=== PATIENT | female | born 1945 | race Caucasian/White ===

== ENCOUNTER 2021-05-10 18:00 | Emergency (ER) | payer OTHER ==
[~2021-05-10] VITALS: Ht 162.6 cm; Wt 68.0 kg
[2021-05-10 19:42] VITALS: BP 139/94
== END 2021-05-10 19:42 ==
LOC: ER 18:00
DX: R45.850 Homicidal ideations (principal); Z20.822 Contact with and (suspected) exposure to COVID-19; F32.9 Major depressive disorder, single episode, unspecified

== ENCOUNTER 2021-05-10 20:54 | Inpatient (IN) | payer OTHER ==
[2021-05-10 21:46] VITALS: BP 158/108
--- NOTE | 2021-05-11 05:26 | NUR ---
Patient arrived on the [facility] floor on 05/10/21 @ 19:54, accompanied by [id number] from [facility] [facility], and transferred to bed 528B. A&Ox4, Full code. Noted to be hyperverbal and spastic, admitted to [facility] for change in mental status, substance abuse and anxiety. Patient is hypertensive, Dr. Jaramillo gave orders to wait for alcohol to clear the system before he will prescribe B/P meds. Activity as tolerated. VS 158/108 98.2 85 18 99% on RA. problems are Altered mental status, Dementia ETOH abuse, with an admitting DX of unspecified Psychosis. Geodon and Ativan were administered in the ED. Ambulatory with a steady gait. Slept well throughout the NOC. Will continue to monitor for safety and comfort as per unit protocol.
[2021-05-11 06:06] LABS: CREATININE 0.8 mg/dL (0.6-1.0); POTASSIUM 4.1 mmol/L (3.5-5.1)
[2021-05-11 06:07] LABS: CHOLESTEROL 271 mg/dL (<200); HDL CHOLESTEROL 87 mg/dL (>40); LDL CHOLESTEROL 162 mg/dL (<100); TC:HDL 3.1 Ratio (Not establshd); TRIGLYCERIDE 113 mg/dL (<150); VLDL 23 mg/dL (<40)
[2021-05-11 06:16] LABS: SERUM ASSESSMENT Clear
[2021-05-11 10:32] VITALS: BP 161/96
--- NOTE | 2021-05-11 13:36 | NUR ---
ERIS emailed Jacquelin Laws with [employer] to request a medicaid screening on this Pt. ERIS provided Jacquelin a copy of the DPOA document. ERIS team will continue to follow up
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
[2021-05-11 16:30] VITALS: BP 146/91
--- NOTE | 2021-05-11 18:27 | NUR ---
Alert to name only. Calm, cooperative and compliant in AM, attempting to help peers but became angry and aggressive after meeting with Dr. Jaramillo and SW. Hopeless. Calmed down in room but again became angry. Ativan given PO with good results. Needy with multiple requests late afternoon. Spoke with DPMARTHA. Currently in day room on couch watching TV with peers. Breath sounds clear. Reg HR auscultated. Color pink with brisk capillary refill and palpable peripheral pulses. No edema. Independent with voiding. Active bowel sounds over soft, rounded abdomen. Ambulates with regular, steady gait. No s/o of distress.
[2021-05-11 20:38] VITALS: BP 138/86
--- NOTE | 2021-05-12 01:09 | NUR ---
05/11/21- Pt is confused, wanders, very steady on her feet, impulsive at times, caught her eating off of a tray. Took medications without difficulty, talks about going home. Will continue to monitor through out shift.
[2021-05-12 02:24] VITALS: BP 138/86
[2021-05-12 03:06] LABS: GLYCOHEMOGLOBIN (HGB A1C) 4.8 % (4.8-5.6)
[2021-05-12 10:13] VITALS: BP 138/89
--- NOTE | 2021-05-12 16:45 | NUR ---
Alert and orientated X 3 but very forgetful. Denies SI/HI but admits to anger against exhusband. Ambulating with regular, steady gait. Interacting with staff and peers. Breath sounds clear. Reg HR auscultated. Color pink with brisk capillary refill and palpable peripheral pulses. No edema. Independent with voiding. States she had BM this AM. Active bowel sounds over soft, flat abdomen. Currently watching TV with peers without s/o distress.
--- NOTE | 2021-05-12 17:38 | NUR ---
Pt. expressed to SW that she did not want her daughter in law, Mrs. Salvador, to be involved in her discharge. Pt. expressed wanting to go with her son and daughter, Nkechi, upon discharge as they have a large home and a fenced in backyard for her dogs. ERIS talked with pt. about her son and his being able to meet her on-going needs.
[2021-05-12 19:37] VITALS: BP 150/94
--- NOTE | 2021-05-13 03:46 | NUR ---
05/12/21- Pt is alert/oriented x 3 with occasional forgetfulnes. ambulates independently w/o difficulty, did complain about low back pain this evening, states it is about a 3/10 but it is affecting my ability to sleep. Tylenol given shortly after her evening medications. Discussed we can crack her door but not lock it because we have to do frequent checks she was fine with that. Denies SI/HI/AH/VH, does voice sadness offer support as needed we did conversate a little this evening. She talked about working for [employer] and office. Very pleasant this evening. Needs a UA, will place a hat in toilet in am to get UA since pt is continent.
[2021-05-13 05:53] LABS: ABSOLUTE NEUTROPHILS 2.2 thou/uL (1.4-8.2); BASOPHILS 0.8 % (0.0-2.0); EOSINOPHILS 2.1 % (0.0-3.0); HEMOGLOBIN 13.3 gm/dL (12.0-15.0); LYMPHOCYTES 30.8 % (24.0-44.0); MCH 31.9 pg (26.0-34.0); MCHC 33.3 g/dL (28.0-37.0); MCV 95.9 fL (80.0-100.0); PLATELET COUNT 184 thou/uL (150-400); POLYS 55.3 % (36.0-66.0); RBC 4.17 mil/uL (4.20-5.00); RDW 13.5 % (10.5-14.5)
[2021-05-13 06:16] LABS: ALBUMIN 3.3 g/dL (3.4-5.0); CALCIUM 8.9 mg/dL (8.5-10.1); CREATININE 0.8 mg/dL (0.6-1.0); MAGNESIUM 2.3 mg/dL (1.8-2.4); PHOSPHORUS 4.9 mg/dL (2.6-4.7); POTASSIUM 4.2 mmol/L (3.5-5.1); TOTAL BILIRUBIN 0.5 mg/dL (0.2-1.0); TOTAL PROTEIN 6.3 g/dL (6.4-8.2)
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
[2021-05-13 07:55] VITALS: BP 143/96
[2021-05-13 08:59] LABS: URINE BILIRUBIN NEGATIVE (Negative); URINE BLOOD TRACE (Negative); URINE CLARITY CLEAR; URINE COLOR YELLOW; URINE GLUCOSE-RANDOM* NEGATIVE (Negative); URINE KETONES NEGATIVE (Negative); URINE LEUKOCYTES-REFLEX NEGATIVE (Negative); URINE NITRITE-REFLEX NEGATIVE (Negative); URINE PROTEIN (DIPSTICK) NEGATIVE (Negative); URINE SPECIFIC GRAVITY <= 1.005 (1.005-1.035); URINE UROBILINOGEN 0.2 E.U./dl (0.2-1.0)
--- NOTE | 2021-05-13 14:04 | NUR ---
PATIENT CARE ASSUMED AT 0700, PATIENT IS SITTING IN THE DAY ROOM, ALERT AND ORIENTED X3, SHE IS CALM AND COOPERATIVE WITH CARE, SHE ATE AND ATTEND GROUPS, ASSESSMENT COMPLETED, BREATH SOUND CLEAR, ACTIVE BOWEL SOUND OVER SOFT ROUNDED ABDOMEN, REGULAR HR, RR EVEN NONLABOURED, COLOR PINK WITH BRISK CAPILLARY REFILL, PATIENT AMBULATE WITH STEADY GAIT, SHE IS INDEPENDENT WITH VOIDING, SHE TOOK HER MEDICATION WHOLE, DENIES SI/HI. WILL CONTINUE TO MONITOR PATIENT FOR BEHAVIOR AND SAFETY
--- NOTE | 2021-05-13 15:52 | NUR ---
Check-in with pt. Pt. asked how much it cost to ride the bus as when she leave she doesn't have any money. The SW explained that the hospital will help with transportation. The pt. was also concerned about not having a place to go. The SW ensured that the SWs will help in finding placement prior to discharge. The pt. again expressed living with her son, Ronald, and his but not having the number to call.
[2021-05-13 19:31] VITALS: BP 155/109
[2021-05-13 20:15] VITALS: BP 145/78
--- NOTE | 2021-05-14 05:28 | NUR ---
PATIENT CARE WAS RESUMED AT 1900. SHE IS ALERT AND ORIENTED, MAX ASSIST WITH CARE. LUNGS ARE CLEAER, BS ACTIVE X 4 QAUD. SHE AMBULATED WITH A SBA. BS ACTIVE X4 . SHE DENIES PA1NS/SI/AVH/HI. Q12 MINURES CHECK IS ON GOING. BED IS LOW, LOCKED AND ALARMED.SHE TOO HER MED WHOLE.
[2021-05-14 09:44] VITALS: BP 114/82
--- NOTE | 2021-05-14 10:28 | NUR ---
RESUMMED CARE OF PATIENT AT 0700, PATIENT SITTING AT THE DAY ROOM, ALERT AND ORIENTED X3, SHE CAN BE FORGETFULL AT TIMES, SHE IS CALM AND COOPERATIVE WITH CARE, ACTIVE BOWEL SOUND OVER SOFT ROUNDED ABDOMEN, NO EDEMA NOTED, SKIN INTACT, SHE PATICIPATED IN GROUP, PATIENT AMBULATE WITH STEADY GAIT, NO DEVICES NEEDED, INDEPENDENT WITH VOIDING. PATIENT DENIES SI/HI, WILL CONTINUE TO MONITOR FOR SAFETY AND BEHAVIOR
[2021-05-14 19:50] VITALS: BP 131/85
--- NOTE | 2021-05-15 02:46 | NUR ---
PATIENT CARE WAS RESUMED AT 1900. SHE IS ALERT AND ORIENTED. SHE AMBULATES , TOOK HER MED,AND SHE DENIES PAINS/SI/ AVH/HI. LUNGS ARE CLEAR BS ACTIVE X4 QUADS. SHE IS CONTINENT OF BOWEL AND BLADDER. BED IS LOW AND LOCKED. SHE IS WANTING TO KEEP HER DOORS LOCKED BUT NURSE ADVISED THAT DOO SHOULD BE OPENED FOR EASY ASSESSMENT OF SAFETY. CONTINUE CARE
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
[2021-05-15 09:23] VITALS: BP 116/59
--- NOTE | 2021-05-15 11:29 | NUR ---
05-15-2021--9:00 AM--Spoke to RUBIA who states she wants resident placed when possible in [facility] area. She states [facility] is one [facility] the facilities they are interested in if they will take her. Provided her with code to call [email or web address]. She would like a copy of memory care facilities in [facility] emailed to her. Will give list to Zara SCHULTE. Ana also provided her number at work ([phone]) so the MD can call her. Provided it to Dr. Rosa.
--- NOTE | 2021-05-15 12:28 | NUR ---
New admit to [facility]. Pt noted with unspecified psychosis, treatment previously at [facility] x 3-4 days for AMS, then transferred here for admit to [facility]. Pt noted with significant recent emotional trauma and hx/current? ETOH abuse. She is on MVI and thiamine. Labs reviewed: Phos 4.9, Alk Phos 42, Chol 271, LDL 162. Intakes 100% on regular diet since admit, BMI 23 WNL. Second covid test results pending. With good deitary intakes and no c/o recent weight loss or change in appetite. Low nutrition risk at this time.
--- NOTE | 2021-05-15 13:10 | NUR ---
RESUMED CARE OF PATIENT AT 0700, PATIENT IN BED LAYING DOWN, CAME OUT FOR BREAKFAST, SHE IS ALERT AND ORIENTED X 3, CALM AND PLEASANT WITH CARE, ACTIVE BOWEL SOUND OVER SOFT AND ROUNDED ABDOMEN, BREATH SOUND CLEAR, REGULAR HR, SKIN IS INTACT, PATIENT AMBULATE ON A STEADY GAIT, SHE TOOK HER MEDICATION WHOLE, NO BEHAVIOR CHANGE, PATIENT DENIES SI/HI, WILL CONTINUE TO MONITOR FOR SAFETY
[2021-05-15 17:25] VITALS: BP 131/86
[2021-05-15 20:06] LABS: SYPHILIS AB Non Reactive (Non Reactive)
[2021-05-15 20:14] VITALS: BP 124/69
--- NOTE | 2021-05-16 05:41 | NUR ---
05-15-21 CARE TRANSFERRED 1899. LATER PT AAOX4, VSS, RR EVEN AND NONLABORED ON RA. PT DENIES SI/HI AND PAIN. PT LUNGS CLEAR, HT RR, ABD SOFT/FLAT/ACTIVE. PT REPORTED HAVING A BM THIS AM. PT PRESENTS PLESANT, CALM AND COOPERATIVE. DURING MEDICATION ADMIN PT HAD NO DIFFICULTIES. PT WILL CONTINUE TO BE MONITOR PER [facility].
[2021-05-16 10:18] VITALS: BP 114/74
[2021-05-16 13:31] VITALS: BP 114/74
--- NOTE | 2021-05-16 14:24 | NUR ---
RESUMMED CARE FROM OVERNIGHT SHIFT THIS AM, PATIENT ALERT ORIENTED TIMES 4 IN HER ROOM. PATIENT DENIES SI/HI/AH/VH AT PRESENT PATIENTS ABDOMEN SOFT BOWEL SOUNDS PRESENT. PATIENTS LUNGS CLEAR PATIENT DOES NOT HAVE ANY COVID SYMPTOMS. PATIENT CALM COOPERATIVE WILL CONTINUE TO MONITOR PATIENT FOR SAFETY AND BEHAVIORS.
--- NOTE | 2021-05-16 15:16 | NUR ---
05-16-2021--3:15 PM--Call to Ana Salvador (DPOA and daughter in law) of patient. inquired if she had an opportunity today or yesterday to look at the lists of NH/AL homes around the [facility] or on Medicare.com (which is a resource that was given to her yesterday by ERIS Zuñiga). She stated she had not. (The one resource she had named a couple of days ago was [facility].) Patient is Covid positive and will need to have a facility with a covid unit or be accepting Covid positive patients. I also explained to Ana that with Medicaid pending it will be very difficult to place the patient. Ana states the medicaid paperwork has been submitted but she thought there would be more paperwork that will be required. I advised her that I am going to submit information to a facility [facility] ([phone]) ( ). She was agreeable to this. I asked that she and her (patient's son) look at facilities and give me several options and that I will start calling facilities in their area to look for placement. She was agreeable.
--- NOTE | 2021-05-16 15:49 | NUR ---
05-16-2021--3:55 PM--Faxed referral paperwork to [facility] ([phone]) and to liasion at same facility ([facility]--fax [phone]; phone number for the liason is [phone]).
[2021-05-16 18:56] VITALS: BP 114/79
--- NOTE | 2021-05-17 05:08 | NUR ---
05-16-21 CARE TRANSFERRED 1899. LATER PT AAOX4, VSS, RR EVEN AND NONLABORED ON RA. PT DENIES SI/HI. PT REPORTS PAIN IN LOWER BACK AND SCALES 6 ON 0-10 SCALE. PT PRESENTS PLESANT, CALM AND COOPERATIVE. PT LUNGS CLEAR, HT RR, ABD SOFT/ACTIVE, SKIN W/D. PT PAIN HAS BEEN MANAGED WITH PRN MEDICATION AND PT HAD NO DIFFICULTIE TAKING MEDICATION WHOLE WITH WATER. LATER DURING REASSESSMENT OF PAIN NOTED PT RESTING WITH EYES CLOSED. PT WILL CONTINUE TO BE MONITOR PER [facility] PROTOCOL.
[2021-05-17 08:50] VITALS: BP 151/86
--- NOTE | 2021-05-17 09:31 | NUR ---
05-17-2021--8:00 AM--Call to see facilities in area. All were private pay and wouldn't take medicaid. Faxed referrals to three faciliies: [facility] ( --phone Csqnn-[phone]) neds to be 10 days out from covid + finding. I faxed informaion to [facility]-- . I faxed info to [facility] on 05-16-21. Call today to amparo Riana at [employer] ([phone]). Not in. Msg left to return my call.
--- NOTE | 2021-05-17 09:40 | NUR ---
05-17-2021--9:40 AM--call to DPOA to advise of referrals sent and deter,mikaela if there were any she and her ad found. ([phone] home) Also attempted call to her work ([phone]). Talked to Ana who gave me the name of one facility [facility]. I will attempt to call this facility to get fax. Spoke admissions--Not taking covid positive patients.
--- NOTE | 2021-05-17 10:16 | NUR ---
05-17-2021--Call to Riana christensen ([phone]). She will call Jerry of [employer] and call me back.
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
[2021-05-17 19:46] VITALS: BP 128/80
--- NOTE | 2021-05-18 07:07 | NUR ---
05-18-2021--7:10AM--Call will be made to MEME christensen to determine if she canget patient [facility] a least until she is 10 days past positive date and then new facility will be found.
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
[2021-05-18 08:14] VITALS: BP 124/80
--- NOTE | 2021-05-18 08:15 | NUR ---
05-18-2021--8:15 AM--call to Alisson Mayers--[phone]--to ask about [facility]. She has staffng with them at 8:30 AM and will call me back. She states [facility] and [facility] will not take Covid patients who need a secure unit. I advised this resident needs memory care. She will check and call back after her meeting.
--- NOTE | 2021-05-18 08:50 | NUR ---
RT Progress Note- During the first days of her admission, Kathie was an active participant in both the milieu and recreation therapy groups. Kathie involved herself with peers on the unit, sometimes requiring redirection to practice appropriate boundaries. Participation in each group is noted. Kathie is now COVID+ and isolated to her room and unable to participate in group programming. She has been provided a trivia/reminisce packet to work through and spends other free time utilizing the telephone appropriately.
--- NOTE | 2021-05-18 10:36 | NUR ---
05-18-2021--9:45AM--Team meeting--Call made after meeting to MARTHA Perez and process for movving patient and cleaning reviewed. ([facility] called back this AM and stated they didn't take medicaid or COVID patients). BRYANT hadn't found any other places to call. Advised patient will be moved to medical floor and on he 17 (Friday) she will be retersted for COVID and if she is negative she will need to be rodrigo to a facility. [facility] accepts responsibility for finding a suitable memory care unit for patient when she DC's from medical floor.
--- NOTE | 2021-05-18 16:42 | NUR ---
INITIALLY THIS [id number] SHOWER AND WAS PLEASANT AND CONVERSING WITH NURSING STAFF- DAY PROGRESSESS NOTED TO HAVE INCREASED AGITATION WHICH ESCALATED EVEN FURTHER AFTER SPEAKING WITH AND ERIS RE DISCHARGE PLANS AND NEED FOR CONTINUED HOSPITAL STAY-AT APPROX 1530 BEGAN STANDING IN DOORWAY OF ROOM -WILL YELL OUT "I AM BEING KEPT HERE ILLEGALLY" "I AM GOING TO WALK OUT RIGHT NOW BECAUSE THAT IS THE LAW YOU HAVE TO LET ME GO-I HAVEN'T COMMITTED ANY CRIME" DEMANDING TO CALL MULTIPLE FAMILY MEMBERS TO TELL THEM OFF
[2021-05-18 19:40] VITALS: BP 147/96
[2021-05-18 20:00] VITALS: BP 147/96
--- NOTE | 2021-05-19 06:39 | NUR ---
Slept 7.6 hours overnight.
[2021-05-19 08:02] VITALS: BP 146/97
--- NOTE | 2021-05-19 09:28 | NUR ---
Assumed pt care at 0700. pt was alert and oriented to self. Calm and cooperative with care. Assessment completed, VSS. lungs clear, active bowel sound. Denies, si/hi, denies pain. Took meds whole with thin liquid, no difficulty noted. Ambulates with a steady gait. No sign of acute distress noted at the time of assessments. Makes needs known to staff. At this time pt is in her room resting. Will cntinue to monitor.
[2021-05-19 19:55] VITALS: BP 120/84
[2021-05-19 20:00] VITALS: BP 120/84
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
--- NOTE | 2021-05-20 06:38 | NUR ---
PATIENT HAS SLEPT MOST OF NIGHT. CONTINUING TO MONITOR. BED IN LOW POSITION. PATIENT AWOKE TO SPEAK TO THIS NURSE WHEN I CHECKED ON HER AND BACK TO SLEEP.
[2021-05-20 09:08] VITALS: BP 102/79
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
[2021-05-20 20:00] VITALS: BP 132/90
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
[2021-05-21 12:22] VITALS: BP 113/77
--- NOTE | 2021-05-21 14:32 | NUR ---
05-21-2021--14:30 PM--Went to unit to check to make sure DPOA paperwork is on the chart. It is in the front. DPOA was Francis Palacios--Her -and they are getting a divorce. The first alternate on the form is patient's [id number], Aan ( of laurie's youngest son). Under the circumstances (seperated and getting a divorce) he does not want the responsibility so it goes to the first alternate, Ana. There is also a form signed by Dr. Hale and notarized state she is incapacitated and enacting the DPOA.
--- NOTE | 2021-05-21 14:45 | NUR ---
Nutrition followup: pt continues on SICU [facility] unit, COVID +. Eating 100% of meals on regular diet. On , B12 and folic acid supplementation. Most recent weight per bedscale showing possible 5# loss from admit. Follow trends as pt has been eating well. Physician has documented malnutrtion-defer. Low nutrition risk.
--- NOTE | 2021-05-21 15:30 | NUR ---
RESUMMED CARE FROM OVERNIGHT SHIFT THIS AM, PATIENT ALERT AND ORIENTED TIMES 2. PATIENT LIKES TO RING THE CALL LIGHT AND COME OUT OF HER ROOM. SHE IS DIRECTABLE PATIENT DENIES SI/HI/AH/VH AT PRESENT. PATIENT CALM COOPERATIVE SHE ASKS WHEN SHE IS LEAVING. PATIENTS ABDOMEN SOFT BOWEL SOUNDS PRESENT, PATIENTS LUNGS CLEAR. PATIENT TAKES MEDICATION WITHOUT INCIDENCE WILL CONTINUE TO MONITOR PATIENT FOR SAFETY AND BEHAVIORS.
--- NOTE | 2021-05-21 15:33 | NUR ---
ERIS spoke with Cat, [facility] admissions liasion, concerning referral sent on the Pt. Cat stated there were concerns about the Pt's HI and behaviors. Cat agreed Pt needed a locked unit. At this time none of the [facility] with locked units will accept a COVID+ Pt on the locked unit. ERIS explained Pt will be in the hospital for the duration of the isolation period, therefore any placment would need to be after 10 days from Pt's positive testing. ERIS also explained that the Pt's thought of harming another person are specific to her and children. Cat requested updates and the DPOA document be faxed to her. Cat stated she will continue working with the facilites with locked units to see if anyone will accept after the Pt after the quarantine period. ERIS faxed updates to [facility]. ERIS team will continue to follow
[2021-05-21 19:20] VITALS: BP 135/89
--- NOTE | 2021-05-22 02:32 | NUR ---
05-21-21 CARE TRANSFERRED 1899. LATER PT AAOX3, VSS, RR EVEN AND NONLABORED ON RA. PT DENIES PAIN AND SI/HI. PT PLESANT, CALM AND COOPERATIVE. PT REQUESTED DRINK AND SNACK, PT ATE 100% OF HS SNACK. DURING MEDICATION ADMIN PT HAD NO DIFFICULTIES TAKING MEDICATION WHOLE WITH WATER. PT BED WAS ADJUSTED FOR COMFORT. LATER NOTED PT RESTING WITH EYES CLOSED IN BED.
--- NOTE | 2021-05-22 08:17 | NUR ---
05-22-2021--7:45 AM-- Went to second floor (skilled nursing suites) to see patient. She was awake and watching TV. She stated her was here to see her yesterday afternoon. She stated "he was sitting there talking tp me amd then he just jumped up and disappeared. He didn't even tell me where he was going. OI just fogred he gpt a call for another job". I asked Kathie to expalin to me what he does. She stated she could not explain it. She stated she thought she was discharging today. I advised her she had to be COVID negative before she can leave. She stated oif she could just talk to Yoshi she could foind out what is going on and where Francis went to. I asked if she had Yoshi's number to call him and she stated "no". Call will be made today to determine if family has found a home for her that accepts covid (positive) patients.
--- NOTE | 2021-05-22 16:01 | NUR ---
TEARFUL DURING AM ASSESSMENT AND 1;1 INTERACTION WITH THIS RN. REPORTING FEELING LIKE SHE IS IN PENITENTIARY AND STATES "I DON'T EVEN REMEMBER MY CRIME OR MY TRIAL BUT I MUST HAVE DONE SOMETHING BAD"WHEN REORIENTED TO CURRENT SITUATION AND INFORMED SHE WAS IN THE HOSPITAL WITH A SERIOUS INFECTIOUS VIRUS STATES "I DON'T KNOW IF I CAN BELIEVE THAT BECAUSE I DON'T EVEN FEEL SICK"RESTLESS AT TIMES PACING IN ROOM-DYSPHORIC MOOD. NO COUGH NOTED OR [id number] CLEAR, DENIES PAIN/DISCOMFORT-APPETITE GOOD-COMPLETES ADLS INDEPENDENTLY WITHOUT PROMPTING. GAIT STEADY WITHOUT ASSISTIVE DEVICES
[2021-05-22 16:33] VITALS: BP 134/75
[2021-05-22 20:06] VITALS: BP 137/88
--- NOTE | 2021-05-23 05:12 | NUR ---
05-22-21 CARE TRANSFERRED 1899 OBSERVED PT SITTING IN BED WATCHING TV. LATER PT AAOX2, VSS, RR EVEN AND NONLABORED ON RA. PT DENIES PAIN AND SI/HI. PT IS APPROIATE DURING COMMUNICATION. LATER PT CALLED FOR , AND SHE STATED SEE HE IS OVER THERE WORKING, AFTER REORIENTATED, PT STATED SHE MISSED HER . PT POSSIBLLY HAVING DELUSIONAL WITH HALLUCINATIONS. PT WILL CONTINUE TO BE MONITOR PER [facility] PROTOCOL.
--- NOTE | 2021-05-23 08:11 | NUR ---
05-23-2021--7:35 AM--Patient seen on 2nd floor CCU (sic unit) Patient was alert and oriented x's 2 (person and place). She reported the bed was very comfortable and she had a good night's sleep. She stated her son was in to see her yesterday. She reports he wanted her to put all her things in his name. She reports he told her they would be worth more money then. She stated he then began telling her nurses how to work the TV and how it should be hooked up. She asked him why he was doing that and he told her he didn't think she would be able to figure it out. She stated "He thinks I'm senile or something". Patient states she and her had already talked about all that. Patient misplaced her glasses and she shook out all the covers out twice and looked in the drawers twice. She stated she never leaves her glasses anywhere (as I checked the bathroom.) I told her I would let the nurse know she has lost her glasses as I leave the unit.
[2021-05-23 09:38] VITALS: BP 125/80
--- NOTE | 2021-05-23 12:39 | NUR ---
05-23-2021--12:30 PM--Faxed paperwork to the [facility] and [facility] on . [facility] stated they had no open beds. Waiting for reply from the [facility].
--- NOTE | 2021-05-23 13:09 | NUR ---
PATIENT CARE WAS RESUMED AT 0700, PATIENT SITTING ON THE BED, SHE IS ALERT AND ORIENTED X3, SHE CAN BE FORGETFUL, PATIENT WAS CALM AND COOPERATIVE FOR ASSESSMENT, BOWEL SOUND ACTIVE WITH SOFT ABDOMEN, BREATH SOUND CLEAR, REGULAR HR, RR EVEN NONLABORED ON ROOM AIR, COLOR PINK WITH BRISK CAPILLARY REFILL, PATIENT TOOK HER MEDICATION WHOLE, SHE AMBULATE IN HER ROOM, SHE ASKED ME WHAT TIME HER WILL BE PICKING HER UP, SHE THOUGHT SHE WAS BEING DISCHARGE TODAY BUT TOLD PATIENT I WAS NOT INFORMED OF HER LEAVING TODAY. NO BEHAVIOR CHANGE WAS OBSERVED, PATIENT DENIES SI/HI, WILL CONTINUE TO MONITOR PATIENT FOR SAFETY
--- NOTE | 2021-05-23 15:29 | NUR ---
05-23-2021--15:25--Call to Corbin (RUBIA) and told her the results from the calls and faxes to the three nursing homes she wanted me to check. I told her one was closed down for covid and the other two didn't have any beds available. I asked if she wanted me to call Cat back and tell her she would accept the [facility]. She stated ot was too far away and she would prefer something else. I faxed her my list of NH (with numbers) and she will call some facilities this afternoon. They have had a oin the family and the will be on Friday (the same day [facility] to be moved.) They have relatives coming and staying woith them for the . I asked if she and her were wanting to be with Kathie when she moved or if the facility could just come and get her. She stated they could just come and get her. Waiting for return call from Malini if she finds someplace else.
--- NOTE | 2021-05-23 15:58 | NUR ---
05-23-2021--16:00--Call to Cat to let her know we would be takng the placement at [facility]. (She had told me this AM they were going to take her.) She stated she sent paperwork to them for her and they refused because of behaviors. Cat will continue to look for placement with her facilities.
--- NOTE | 2021-05-23 16:07 | NUR ---
05-23-2021--16:10--Call to [facility] to see if she had found any others she wanbts me to try and to tell her that the one in [place] after looking at paperwork won't take her [id number]. I requested she call me early in the AM I am usually here by 7:15 and I will start sending out info. She is facing the on Friday and her mother in law being DC'd. I explained she would be DC'd to family if we didn't have a facility. She states "no one is calling me back" from the nursing homes she is calling. I explained they may be gone for the day but if they have some picked out, even if she hasn't talked to them we could send the paperwork so it was there in the AM for them to look at. She was agreeable.
[2021-05-23 19:13] VITALS: BP 143/97
[2021-05-23 20:00] VITALS: BP 143/97
--- NOTE | 2021-05-23 22:01 | NUR ---
AT ONSET OF SHIFT PT RESTING IN BED AND WATCHING TV. THIS SHIFT PT WAS ALERT WITH CALM AFFECT. OVREALL PT WAS CALM, PLEASANT AND COOPERATIVE. PT IS ONLY ORIENTED TO SELF. PT ASKED RN IF RN HAD SEEN HER FRIENDS AT THE BAR AND WANTED TO KNOW HOW EVERYONE WAS. RN ORIENTED PT TO TIME AND PLACE. PT REQUESTED RN TELL HER SHE WOULD LIKE HIM TO VISIT. PT IS INDEPENDENT WITH ADLS. COMPLIANT WITH HS MEDICATION, VITAL SIGNS AND ASSESSMENT.
--- NOTE | 2021-05-24 08:30 | NUR ---
05-24-2021--07:45 AM--Call from residents DPOA stating she didn't get any positive responses from places she called. She stated we should just do a "mass referral" to all nursing homes. I explained I couldn't do that but oif she had a couple in mind I would call them and send paperwork. She stated "we just can't have her in our home. It's too small." I told her I would call [facility] and [facility]. Will call back with answers.
--- NOTE | 2021-05-24 08:38 | NUR ---
05-24-2021--08:40 AM-Call made to Ash Quinn ( ). Got fax number ([phone]) and sent referral information to them, Call to Ebenezer Smith ( ) No answer, message left to call me back.
[2021-05-24 08:57] VITALS: BP 109/70
--- NOTE | 2021-05-24 10:21 | NUR ---
05-24-2021--10:00 AM--call to [facility] to see if they would accept patient. Not in Left message to call me back. Call to Ebenezer Smith to get fax number--No answer in admissions left message. Call to Cat amparo at [facility] and she stated she and her biomedical engineering supervisor were working on getting her into one of their facilities but was waiting to hear back. Call to Zara who provided fax numbers for [facility] (referral faxed to them. Waiting for call back. Faxed info to [facility]. (waiting for call back.
--- NOTE | 2021-05-24 14:45 | NUR ---
PATIENT CARE ASSUMED AT 0700, PATIENT WAS OBSERVED SITTING ON THE BED, SHE IS ALERT AND ORIENTED X3, FORGETFUL AT TIMES, CALM AND COOPERATIVE WITH CARE, REG HR,BREATH SOUND CLEAR WITH DRY COUGH. ACTIVE BOWEL SOUND WITH SOFT ABDOMEN, AMBULATE WITH STEADY GAIT. PATIENT DENIES SI/HI
--- NOTE | 2021-05-24 16:39 | NUR ---
05-24-2021--11:00 AM--Faxes with referrals were sent to [facility]; [facility]; [facility], [facility]; [facility]; [facility]; [facility]; [facility]; [facility]; [facility]; [facility]; [facility]; [facility]; and [facility]. I had not heard back from any of them and so I called each one to be sure they got the referral information andd to ask the disposition. [facility]enezer Lacey called back after reviewing info and stated they would take her. They requested the Durable Power of Pool Lifeguard forms and the doctor signed incapacitated paperwor along jonel villaseñor [id number]. Completed DA124 C and DC paperwork and maade copies of DPOA paperwork and MD's signed statement of incapacitation. She will go by [facility] to be picked up at 12:30 PM. Paperwork will be faxed to [facility] Lacey in the AM and sent woth patient also. Patient has not been told where she is going. RN's on the unit were informed she was leavoing tomorrow
[2021-05-24 19:45] VITALS: BP 135/91
[2021-05-24 19:46] VITALS: BP 135/91
--- NOTE | 2021-05-25 01:03 | NUR ---
Assumed care on 05/24/21 @ 1900, in bed awake alert and oriented x3, not able to name the president. Asks if her is comming to do maintenance work at the hospital, then tells that he is a operations and maintenance technician in [place] for the [employer]. Delusion about noted. Cough with phlem noted, Breathing CTA after cough. HRRR, S1S2 noted. ABD N BS x4Q over a soft round abdomen. Took meds whole with apple juice. Noted to be sleeping at HS. Will continue to monitor for comfort and safety as per unit protocol.
[2021-05-25 07:53] VITALS: BP 101/69
[2021-05-25] MEDS ORDERED: SEROQUEL 100 M100 M1 PO (10:54)
[2021-05-25] MEDS ORDERED: PEPCID20 MG PO (10:54)
[2021-05-25] MEDS ORDERED: SEROQUEL 25 MG25 M1 PO (10:54)
[2021-05-25] MEDS ORDERED: VITAMIN B-12500 MCG PO (10:55)
[2021-05-25] MEDS ORDERED: FOLIC ACID1 MG PO (10:55)
[2021-05-25] MEDS ORDERED: PRENATAL PO (10:56)
--- NOTE | 2021-05-25 19:13 | NUR ---
HAS BEEN IN ROOM AND COOPERATIVE/PLEASANT SO FAR THIS AM-TOOK AM MEDS AND ATE BREAKFAST WITHOUT PROBLEMS-DID FLOOD ROOM AND BATHROOM AND GET CLOTHING ITEMS VERY WET WHEN ATTEMPTING TO BATHE INDEPENDENTLY.STATES FEELS NERVOUS ABOUT DISCHARGE AND IS SURPRISED HER SISTER IS MOT PICKINGHER UP. GAIT IS STEADY-NO COUGH,CONGESTION NOTED. AFEBRILE. ATTEMPTED TO CALL REPORT TO CHALINO MATHEWS AT [phone] AND MESSAGE LEFT TO HAVE NURSE CALL.DISCHARGE INSTRUCTIONS REVIEWED WITH [id number] RUBIA MOYA-EDUARDO DISCHARGEDMEDICAL TRANSPORT WITH PERSONAL BELONGINGS [facility] AT APPROX 1130-DENIES C/O PAIN/DISCOMFORT-DENIES SI/SH OR ACUTE ANXIETY
--- NOTE | 2021-05-26 10:00 | D ---
[facility] [place] [address] DISCHARGE SUMMARY Name: LAZARA DOMINGUEZ Room #: 225-P [facility] IN M.R.#: [id number] Admission: 05/10/21 Attend Phys: Vinecnt Jaramillo DO Discharge: 05/25/21 Date of : 49 Report #: [id number] THIS REPORT FOR: cc: FAM - No family physician/PCP FAM - No family physician/PCP Vincent Jraamillo DO ~ DATE OF SERVICE: 05/25/2021 INPATIENT PSYCHIATRIC DISCHARGE SUMMARY ATTENDING PSYCHIATRIST: Vincent Jaramillo DO MACHINE EDGE BANDER AT TIME OF DISCHARGE: Ar Sanders M.D. DISCHARGE DIAGNOSES: Major neurocognitive disorder; possibly alcohol related with behavioral disturbance, improved. Psychiatric comorbidities include psychosis, unspecified, improved. Medical comorbidities include protein calorie malnutrition; COVID-19 positive, asymptomatic. The patient is discharging to [facility] to psychiatric medical care by receiving facility. The patient is on a regular diet. ACTIVITY LEVEL: As tolerated. No alcohol, no smoking, no illicit drugs. DISCHARGE MEDICATIONS: Include Seroquel 125 mg oral at 0900, 1700, and 2100 hours for psychosis and mood stabilization; famotidine 20 mg oral at bedtime for GERD, cyanocobalamin 500 mcg oral daily for supplementation, folic acid 1 mg oral daily for supplementation, vitamin oral daily for supplementation. The patient was a full code during hospitalization. ALLERGIES: No known allergies. LABORATORY DATA: Significant laboratories this admission include hematology, white count 4.0, H and H 13.3 and 40.0, platelet count 184. Chemistries include from 05/13/2021, sodium 143, potassium 4.2, chloride 109, bicarbonate 27, anion gap of 8, BUN 17, creatinine 0.8, estimated GFR 70, glucose 99. A1c 4.8, calcium 8.9, phosphorus 4.9, magnesium 2.3, total bilirubin 0.5, AST 22, ALT 32, alkaline phosphatase 42, total protein 6.3, albumin 3.3. B12 level 571. Folate 30.0, TSH 1.349. Urinalysis this admission had trace blood, otherwise normal. COVID-19 serology was positive on 05/15, but she was previously tested negative. Syphilis serology was nonreactive. REASON FOR ADMISSION: Back on 05/10 or so was as follows. A 75-year-old female, transferred from [facility] 3-4 days stay for altered mental status. Apparently, she had been found ill cothed and in bizzarebehavior. The [address] [address] DISCHARGE SUMMARY Name: IGOR DOMINGUEZLEY Room #: 225-P [facility] IN M.R.#: [id number] Admission: 05/10/21 Attend Phys: Vincent Jaramillo DO Discharge: 05/25/21 Date of : 49 Report #: [id number] patient has a history of alcoholism. It was not clear whether her delirium at [facility] was due to Alchol withdraw. Another trigger was recently been served with divorce papers. HOSPITAL COURSE: The patient was admitted to Geriatric Psychiatry Unit. The patient was generally cooperative with activities on the barnes. She was disorganized and did have delusional thinking. She was started on quetiapine for that, that was slowly titrated. Unfortunately, her stay was complicated by COVID-19 outbreak and she was brought down to the SICU for COVID isolation. The patient had good behavior during her stay in the SICU. The patient actually was discharged today. She came off COVID quarantine. Her son, Yoshi and [id number], Malini were very involved. Malini is the DPOA. They wanted her to be placed in a memory care, which was successfully found. PHYSICAL EXAMINATION: VITAL SIGNS: On day of discharge are as follows, temperature 37.1, pulse 113, respirations 18, BP 101/69, O2 sat 93%. MUSCULOSKELETAL: Seated. Gait not tested. Fair hygiene. MENTAL STATUS EXAMINATION: A well-developed, age-appearing female. Attention is fair. Concentration impaired. Speech slightly increased rate. Thought process: Linear and goal directed. Thought content: Focused on the present, relative poverty of thought. Denied suicidal or homicidal ideation, auditory, visual, or tactile hallucinations. Mood and affect were okay, congruent, euthymic. Memory not formally tested. Insight and judgment limited. Fund of knowledge below average. Prognosis for this patient is guarded given her age of 75 having neurodegenerative disorder, her history of alcoholism, continued sobriety, and 24-hour care and supervision are essential to maintain reasonable prognosis. <ELECTRONICALLY SIGNED> By: Vincent Jaramillo DO 05/26/21 1000 31 Vincent Jaramillo DO /nt
== END 2021-05-25 11:00 | DRG 884 ==
LOC: SBH 20:54 → SICU 20:54
PROVIDERS: Internal Medicine; Nurse Practitioner Family; ADMIT Psychiatry & Neurology Psychiatry; ATTEND Psychiatry & Neurology Psychiatry
DX: F01.51 Vascular dementia, unspecified severity, with behavioral disturbance (principal); U07.1 COVID-19; E46 Unspecified protein-calorie malnutrition; F10.20 Alcohol dependence, uncomplicated; F32.9 Major depressive disorder, single episode, unspecified; R45.850 Homicidal ideations; F29 Unspecified psychosis not due to a substance or known physiological condition; Z81.8 Family history of other mental and behavioral disorders; Z98.891 History of uterine scar from previous surgery; Z63.0 Problems in relationship with spouse or partner; Z81.1 Family history of alcohol abuse and dependence; Z87.440 Personal history of urinary (tract) infections
CPT/HCPCS: 10880